=== PATIENT | female | born 1965 | race Caucasian/White ===

== ENCOUNTER 2020-02-02 17:36 | Emergency (ER) | payer OTHER, SELFPAY ==
--- NOTE | 2020-02-02 17:38 | ED.SOB ---
HPI - SOB/Dyspnea General Chief Complaint: Upper Respiratory Infection Stated Complaint: cough Time Seen by Provider: 02/02/20 17:55 Source: patient and RN notes reviewed Mode of arrival: ambulatory Limitations: no limitations History of Present Illness HPI Narrative: 54-year-old female presents with concern for cough, shortness of breath for 1 month. Reports she is been seen via telemedicine from her doctor several times. Reports he suggests her cough may be related to her hypertension medication. Reports he just called in cough syrup with codeine for her today which she has not started taking. Reports she has had a full dose pack with the last 2 weeks with no relief. Reports she has been using her albuterol inhaler, last used it 2 hours ago. She denies fever, chest pain, body aches, rhinorrhea, nasal congestion, sore throat, headache. MD elicited complaint: cough Related Data Home Medications Medication Instructions Recorded Confirmed albuterol sulfate INHALATION 02/02/20 budesonide-formoterol [Symbicort] INHALATION 02/02/20 bupropion HCl mg PO 02/02/20 bupropion HCl mg PO 02/02/20 lamotrigine 02/02/20 lamotrigine 02/02/20 lisinopril-hydrochlorothiazide tablet 02/02/20 montelukast mg 02/02/20 umeclidinium [Incruse Ellipta] INHALATION 02/02/20 Allergies Allergy/AdvReac Type Severity Reaction Status Date / Time sulfamethoxazole Allergy Severe RASH Verified 02/02/20 17:57 sulfamethizole Allergy Unknown Rash Verified 02/02/20 17:57 trimethoprim Allergy Unknown Rash Verified 02/02/20 17:57 Review of Systems Review of Systems: Narrative: CONSTITUTIONAL: Denies malaise, chills, sweats, or fever. EYES: Denies visual changes, redness, or discharge. ENT: Denies rhinorrhea, congestion, sinus pain, otalgia or sore throat. CARDIOVASCULAR: Denies chest pain, palpitations, or edema. RESPIRATORY: Denies cough and occasional dyspnea. GASTROINTESTINAL: Denies abdominal pain, nausea, vomiting, diarrhea, bloody, or mucous stools. GENITOURINARY: Denies dysuria or hematuria. SKIN: Denies rash or itching. MUSCULOSKELETAL: Denies back pain, joint pain, or myalgia. NEUROLOGIC: Denies numbness, weakness, or headache. PSYCHIATRIC: Denies anxiety or depression. All systems reviewed & are unremarkable except as noted in HPI and below PMFSH Family History Family History (Updated 06/15/14 @ 07:13 by DOCTOR UNKNOWN) Mother Family history of tuberculosis Social History Social History Smoking status: Never smoker Alcohol intake: never Comments At time of signature, agree with nursing past medical, surgical, social and family history. There is no relevant family history pertinent to the presenting complaint Exam Narrative: Exam Narrative: GENERAL: Well-appearing, well-nourished, and in no acute distress. HEAD: Normocephalic EYES: PERRLA, conjunctivae clear ENT: Nares clear, turbinates erythematous, clear discharge. Mucous membranes moist. TM pearly belle with dull light reflex bilaterally; no tragal tenderness. Oropharynx not erythematous without lesions. Tonsils not enlarged and without exudate, no drooling, no hoarseness, no trismus, uvula midline. NECK: Supple. No lymphadenopathy CHEST: Clear to auscultation, breath sounds equal. No wheezing, rhonchi, rales, or stridor. No respiratory distress, speaks in full sentences. Harsh cough noted HEART: Regular rate and rhythm. No murmur heard. SKIN: Warm, dry, no rash. NEURO: Alert and oriented x3. PSYCH: Normal mood and affect Course Course Emergency Course: Patient is aware of diagnosis, understands and agrees to treatment plan. Anticipatory guidance given. Patient agrees to follow-up as directed and is aware of reasons to seek care at the emergency department. Portions of this record may have been created with voice recognition software Vital Signs Vital signs: Vital Signs Temperature 98.9 F 02/02/20 17:40 Pulse Rate 90 02/02/20 17:40 Respiratory Rate 24
[2020-02-02 17:40] VITALS: BP 144/68; PULSE 90; RESP 24; TEMP 37.2; O2SAT 96
== END 2020-02-02 18:06 | disposition home or self-care (01) ==
PROVIDERS: Emergency Provider Nurse Practitioner; PCP Family Medicine
DX: J40 Bronchitis, not specified as acute or chronic (principal); I10 Essential (primary) hypertension; F32.9 Major depressive disorder, single episode, unspecified
CPT/HCPCS: 99213; G0463

== ENCOUNTER 2020-12-29 12:12 | Emergency (ER) | payer OTHER, MEDICAID, SELFPAY ==
--- NOTE | 2020-12-29 12:39 | ED.URI ---
HPI - URI/Sore Throat General Chief Complaint: Upper Respiratory Infection Stated Complaint: cough,asthmatic Time Seen by Provider: 12/29/20 12:39 Source: patient and RN notes reviewed Mode of arrival: ambulatory Limitations: no limitations History of Present Illness HPI Narrative: 55-year-old female who presents to [facility] with complaints of increasing cough with shortness of breath and left ear pain for 1 1/2 weeks. She states that she has been using her ProAir inhaler frequently for the past 2 days and she is getting little relief of her dyspnea. Patient states that she does not know of fevers but has had experienced some feelings of being hot and cold. Patient states use of inhaler 40 minutes ago which has decreased the wheezing but she continues to feel tight with her breathing and also dyspneic with any exertion. Patient denies any sore throat or any nasal drainage or sinus pressure, continues to have some left ear discomfort and harsh non productive cough. MD elicited complaint: cough and other (left ear pain) Pertinent past history: pneumonia and asthma Onset (ago): week(s) (1.5) Consistency: progressively worsening Severity: moderate Pain scale (0-10): 6 Description of mucous: clear Able to tolerate fluids by mouth: Yes Exacerbating factors: exertion Associated symptoms: shortness of breath and ear pain Treatments prior to arrival: other (inhaler) Related Data Home Medications Medication Instructions Recorded Confirmed bupropion HCl 300 mg PO DAILY 02/02/20 12/29/20 lamotrigine 200 mg PO DAILY 02/02/20 12/29/20 lisinopril-hydrochlorothiazide 20 - 25 tablet PO DAILY 02/02/20 12/29/20 albuterol sulfate [ProAir HFA] 2 puff INHALATION QID 12/29/20 12/29/20 [id number]-[id number]-[id number] 1 inh INHALATION DAILY 12/29/20 12/29/20 [Trelegy Ellipta] Allergies Allergy/AdvReac Type Severity Reaction Status Date / Time sulfamethoxazole Allergy Severe RASH Verified 12/29/20 12:53 sulfamethizole Allergy Unknown Rash Verified 12/29/20 12:53 trimethoprim Allergy Unknown Rash Verified 12/29/20 12:53 Review of Systems Review of Systems: Narrative: CONSTITUTIONAL: Denies known fever, has felt hot and cold she reports EYES: Denies visual changes, redness, or discharge. ENT: Denies rhinorrhea, congestion, sore throat, or otalgia. CARDIOVASCULAR: Denies chest pain, palpitations, or edema. RESPIRATORY: Positive cough or dyspnea, tightness with breathing GASTROINTESTINAL: Denies abdominal pain, nausea, vomiting, or diarrhea. GENITOURINARY: Denies dysuria or hematuria. SKIN: Denies rash or itching. MUSCULOSKELETAL: Denies back pain, joint pain, or myalgia. NEUROLOGIC: Denies headache, numbness, or weakness. PSYCHIATRIC: Positive history of anxiety or depression. All systems reviewed & are unremarkable except as noted in HPI and below PMFSH Past Medical History Medical History (Updated 01/01/21 @ 12:23 by Yvrose Hobbs NP) Asthma COVID-05 February 2020 Depression Hypertension Obesity Surgical History Surgical History (Updated 01/01/21 @ 12:04 by Yvrose Hobbs NP) History of carpal tunnel surgery of left wrist History of tubal ligation Family History Family History (Updated 01/01/21 @ 12:06 by Yvrose Hobbs NP) Mother Family history of tuberculosis Hypertension Arthritis Sibling Asthma Hepatitis C Social History Social History (Updated 01/01/21 @ 12:06 by Yvrose Hobbs NP) Smoking status: Never smoker Alcohol intake: current Alcohol use details: rarely Substance use: never Living arrangements: with family Gender identity (if verbalized by the patient): Female Comments At time of signature, agree with nursing past medical, surgical, social and family history. There is no relevant family history pertinent to the presenting complaint Exam Narrative: Exam Narrative: GENERAL: Well-appearing, well-nourished,obese and in no acute distress. HEAD: Normocephalic, atraumatic
[2020-12-29 12:40] VITALS: BP 191/77; PULSE 111; RESP 22; TEMP 36.7; O2SAT 99
[2020-12-29 13:05] VITALS: BP 144/80
== END 2020-12-29 13:12 | disposition home or self-care (01) ==
PROVIDERS: Emergency Provider Registered Nurse; PCP Internal Medicine
DX: J45.41 Moderate persistent asthma with (acute) exacerbation (principal); I10 Essential (primary) hypertension; E66.9 Obesity, unspecified; Z68.41 Body mass index [BMI] 40.0-44.9, adult; F32.9 Major depressive disorder, single episode, unspecified; Z86.16 Personal history of COVID-19
CPT/HCPCS: 99213; G0463

== ENCOUNTER 2021-03-02 14:13 | Emergency (ER) | payer OTHER, MEDICAID, SELFPAY ==
[2021-03-02 14:20] VITALS: BP 162/68; PULSE 90; RESP 18; TEMP 36.6; O2SAT 98
--- NOTE | 2021-03-02 14:21 | ED.URI ---
HPI - URI/Sore Throat General Chief Complaint: Upper Respiratory Infection Stated Complaint: cough Time Seen by Provider: 03/02/21 14:20 Source: patient and RN notes reviewed History of Present Illness HPI Narrative: Patient is a 56-year-old female presents to the urgent care with complaints of a cough with sometimes productive yellow sputum for the last 2 weeks. Patient also reports of some watery eyes and bilateral ear pain. Patient has been using a new nasal spray from her ENT. Denies of any shortness of breath or chest pain. Denies of any fever, chills, nausea, vomiting. Patient did happen to mention that she was seen at our facility on December 29 and given steroids and antibiotics. Patient states that she did feel better and did follow-up with her doctor. States that she called her doctor approximately 1 week ago and they have still not returned her call based on her new symptoms. No other acute complaints. No acute distress noted. Patient aware of the plan of care. Some parts of this dictation were generated by voice recognition software and may contain typographical and/or grammatical inaccuracies. Related Data Home Medications Medication Instructions Recorded Confirmed bupropion HCl 300 mg PO DAILY 02/02/20 12/29/20 lamotrigine 200 mg PO DAILY 02/02/20 12/29/20 lisinopril-hydrochlorothiazide 20 - 25 tablet PO DAILY 02/02/20 12/29/20 albuterol sulfate [ProAir HFA] 2 puff INHALATION QID 12/29/20 12/29/20 [id number]-wapswvqrh-iumhyrnq 1 inh INHALATION DAILY 12/29/20 12/29/20 [Trelegy Ellipta] [id number]-xuowccetl-uhtirftt INHALATION 03/02/21 [Trelegy Ellipta] Allergies Allergy/AdvReac Type Severity Reaction Status Date / Time sulfamethoxazole Allergy Severe RASH Verified 12/29/20 12:53 sulfamethizole Allergy Unknown Rash Verified 12/29/20 12:53 trimethoprim Allergy Unknown Rash Verified 12/29/20 12:53 Review of Systems Review of Systems: Narrative: CONSTITUTIONAL: Denies fever, chills, or sweats. EYES: Denies visual changes, redness. Reports watery eyes ENT: Reports of postnasal drainage and sore throat with bilateral otalgia CARDIOVASCULAR: Denies chest pain, palpitations, or edema. RESPIRATORY: Reports a productive yellow cough without dyspnea GASTROINTESTINAL: Denies abdominal pain, nausea, vomiting, or diarrhea. GENITOURINARY: Denies dysuria or hematuria. SKIN: Denies rash or itching. MUSCULOSKELETAL: Denies back pain, joint pain, or myalgia. NEUROLOGIC: Denies headache, numbness, or weakness. All other systems reviewed are negative, except as documented in HPI. [facility] Past Medical History Medical History (Updated 03/02/21 @ 14:53 by JR Zurita) Asthma COVID-05 February 2020 Depression Hypertension Obesity Surgical History Surgical History (Updated 01/01/21 @ 12:04 by Yvrose Hobbs NP) History of carpal tunnel surgery of left wrist History of tubal ligation Family History Family History (Updated 01/01/21 @ 12:06 by Yvrose Hobbs NP) Mother Family history of tuberculosis Hypertension Arthritis Sibling Asthma Hepatitis C Social History Social History (Updated 01/01/21 @ 12:06 by Yvrose Hobbs NP) Smoking status: Never smoker Alcohol intake: current Substance use: never Gender identity (if verbalized by the patient): Female Comments At the time of my signature, I reviewed and agree with the nursing past medical, surgical, social, and family history. There is no relevant family history pertinent to the patient complaint. Exam Narrative: Exam Narrative: GENERAL: This is a well-nourished, well-developed patient, in no apparent distress. HEAD: normocephalic, atraumatic. EYES: PERRL. Sclera clear/white. Vision is grossly intact. Bilateral clear tearing EARS: External ears normal, auditory canals clear and without drainage, TMs normal without perforation. Hearing grossly intact. NOSE: External nose normal with no obvious nasal discharge, james
== END 2021-03-02 15:02 | disposition home or self-care (01) ==
PROVIDERS: Emergency Provider Nurse Practitioner Family; PCP Internal Medicine
DX: R05 Cough (principal); J45.909 Unspecified asthma, uncomplicated; F32.9 Major depressive disorder, single episode, unspecified; I10 Essential (primary) hypertension; E66.9 Obesity, unspecified; Z68.41 Body mass index [BMI] 40.0-44.9, adult; Z86.16 Personal history of COVID-19
CPT/HCPCS: 99213; G0463

== ENCOUNTER 2021-03-20 17:17 | Emergency (ER) | payer OTHER, MEDICAID, SELFPAY ==
--- NOTE | ~2021-03-20 | XR_ITS ---
XR chest 2V DATE: 03/20/2021 17:43 INDICATION: Shortness of breath, cough, wheezing TECHNIQUE: 2 views COMPARISON: 05/16/2011 2 view chest FINDINGS: Heart size is within normal limits. No hilar or mediastinal enlargement. No pulmonary infil trate or consolidation, pleural effusion or pulmonary vascular congestion or pneumothorax. Included skeletal structures are unremarkable. IMPRESSION: No active disease Reviewed, dictated and finalized at location A. IMPRESSION: No active disease
[2021-03-20 17:26] VITALS: BP 155/89; PULSE 94; RESP 18; TEMP 36.2; O2SAT 96
--- NOTE | 2021-03-20 17:33 | ED.URI ---
HPI - URI/Sore Throat General Chief Complaint: Upper Respiratory Infection Stated Complaint: Coughing, Fever Time Seen by Provider: 03/20/21 17:33 Source: patient and RN notes reviewed History of Present Illness HPI Narrative: Patient is a 56-year-old female who presents the urgent care with complaints of shortness of breath, cough, fever, fatigue and wheezing. Patient was seen in December and given doxycycline and steroids. Patient was then seen again on March 02 and placed on steroids for a second round as well as loratadine. Patient states that she felt better initially and now has been feeling worse for the last couple weeks. Patient states that she took Tylenol for the fever but otherwise has not been taking anything else [id number] for her symptoms. Patient denies of chest pain. Patient is also not followed up with her doctor. No other acute complaints. No acute distress noted. Patient aware of the plan of care. Some parts of this dictation were generated by voice recognition software and may contain typographical and/or grammatical inaccuracies. Related Data Home Medications Medication Instructions Recorded Confirmed bupropion HCl 300 mg PO DAILY 02/02/20 03/20/21 lamotrigine 200 mg PO DAILY 02/02/20 03/20/21 lisinopril-hydrochlorothiazide 20 - 25 tablet PO DAILY 02/02/20 03/20/21 albuterol sulfate [ProAir HFA] 2 puff INHALATION QID 12/29/20 03/20/21 [id number]-fgjovjulu-moihabqs 1 inh INHALATION DAILY 12/29/20 03/20/21 [Trelegy Ellipta] benralizumab [Fasenra] 30 mg SUBCUT MONTHLY 03/20/21 03/20/21 Allergies Allergy/AdvReac Type Severity Reaction Status Date / Time sulfamethoxazole Allergy Severe RASH Verified 03/20/21 17:37 trimethoprim Allergy Unknown Rash Verified 03/20/21 17:37 Review of Systems Review of Systems: Narrative: CONSTITUTIONAL: Reports of low-grade fever and chills. Reports of fatigue EYES: Denies visual changes, redness, or discharge. ENT: Denies rhinorrhea, congestion, sore throat, or otalgia. CARDIOVASCULAR: Denies chest pain, palpitations, or edema. RESPIRATORY: Reports of persistent cough and wheezing with intermittent dyspnea GASTROINTESTINAL: Denies abdominal pain, nausea, vomiting, or diarrhea. GENITOURINARY: Denies dysuria or hematuria. SKIN: Denies rash or itching. MUSCULOSKELETAL: Denies back pain, joint pain, or myalgia. NEUROLOGIC: Denies headache, numbness, or weakness. All other systems reviewed are negative, except as documented in HPI. [facility] Past Medical History Medical History (Updated 03/20/21 @ 17:57 by JR Zurita) Asthma COVID-05 February 2020 Depression Hypertension Obesity Surgical History Surgical History (Updated 01/01/21 @ 12:04 by Yvrose Hobbs NP) History of carpal tunnel surgery of left wrist History of tubal ligation Family History Family History (Updated 01/01/21 @ 12:06 by Yvrose Hobsb NP) Mother Family history of tuberculosis Hypertension Arthritis Sibling Asthma Hepatitis C Social History Social History (Updated 01/01/21 @ 12:06 by Yvrose Hobbs NP) Smoking status: Never smoker Alcohol intake: current Substance use: never Gender identity (if verbalized by the patient): Female Comments At the time of my signature, I reviewed and agree with the nursing past medical, surgical, social, and family history. There is no relevant family history pertinent to the patient complaint. Exam Narrative: Exam Narrative: GENERAL: This is a well-nourished, well-developed patient, in no apparent distress. HEAD: normocephalic, atraumatic. EYES: PERRL. Sclera clear/white. Vision is grossly intact. EARS: External ears normal, auditory canals clear and without drainage, TMs normal without perforation. Hearing grossly intact. NOSE: External nose normal with no obvious nasal discharge, nares without redness, no rhinorrhea. THROAT: Mucous membranes moist, posterior pharynx clear. NECK: Neck supple, non-tender wi
== END 2021-03-20 18:00 | disposition home or self-care (01) ==
PROVIDERS: Emergency Provider Nurse Practitioner Family; PCP Internal Medicine
DX: J45.21 Mild intermittent asthma with (acute) exacerbation (principal); I10 Essential (primary) hypertension; F32.9 Major depressive disorder, single episode, unspecified; Z86.16 Personal history of COVID-19; E66.9 Obesity, unspecified; Z68.41 Body mass index [BMI] 40.0-44.9, adult
CPT/HCPCS: 71046; 99213; G0463